=== PATIENT | male | born 2000 | race Caucasian/White ===

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

== ENCOUNTER → 2022-08-24 13:02 | Outpatient (BNVA) | payer MEDICAID, SELFPAY | PROVIDERS: Visit Provider Student in an Organized Health Care Education/Training Program | DX: S83.004D Unspecified dislocation of right patella, subsequent encounter (principal); X58.XXXD Exposure to other specified factors, subsequent encounter | CPT/HCPCS: 73562 ==

== ENCOUNTER 2022-09-13 07:26 | Outpatient (CLI) | payer MEDICAID, SELFPAY ==
--- NOTE | 2022-09-13 07:36 | MR_ITS ---
WS: [id number] MRI RIGHT KNEE HISTORY: patellar dislocation COMPARISON: Radiograph 08/24/2022 Anterior cruciate ligament: Intact. Posterior cruciate ligament: Intact. Medial collateral ligament: Moderate amount of fluid surrounding the supra articular MCL. There is al so increased T2 signal in the central ligament consistent with a mild sprain. High-grade tear proxima l MCL near the attachment with the medial patellofemoral ligament. Posterior lateral corner structures: Intact. Medial menisci: Intact. Normal signal, size and shape. Lateral meniscus: Intact. Normal signal, size and shape. Extensor mechanism: Distal quadriceps tendon and patellar tendons are intact. Fluid and soft tissue: Moderate-sized suprapatellar joint effusion. Edema and fluid extend into the k nee joint with a small amount of edema in the infrapatellar fat pad. No Jaimes's cyst. Osseous and articular structures: Patellofemoral compartment: Lateral subluxation of patella with no complete dislocation. There is a l arge amount of edema within the patella greatest along the medial component. Abnormal signal involvin g both the medial patellofemoral ligament attachment to the patella and distally at the medial condyl e. Medial compartment: Small amount of marrow edema medial femoral condyle at the site of the MCL and th e distal medial patellofemoral ligament. Otherwise the joint space is normal. Lateral compartment: Large amount of marrow edema in the lateral femoral condyle extending across the midline. Flattening of the normal concavity of the femoral condyle was also noted on the radiograph consistent with cortical and trabecular injury. There is flattening and osteochondral fracture involv ing the anterolateral femoral condyle. No significant cartilage abnormality in the joint space. The t ibial plateau is normal. MR/MR knee RT wo con* [id number] IMPRESSION: 1. Constellation of findings consistent with recent acute patellar dislocation . 2. Patella continues to be slightly laterally subluxed. 3. Marrow edema and osteochondral injury in the medial patella and lateral fem oral condyle. 4. Flattening and osteochondral injury/fracture involving the lateral femoral condyle. 5. Torn medial patellofemoral ligament. Ligament is torn at both the attachmen t to the patella and distally at the medial femoral condyle. 6. There is a small amount of marrow edema in the medial femoral condyle. This is at the site of the medial patellofemoral ligament insertion and the proxima l medial collateral ligament which is also torn. 7. Moderate joint effusion.
== END 2022-09-13 07:27 | disposition home or self-care (01) ==
PROVIDERS: Visit Provider Physician Assistant
DX: S83.004A Unspecified dislocation of right patella, initial encounter (principal); X58.XXXA Exposure to other specified factors, initial encounter; R60.0 Localized edema; M25.461 Effusion, right knee
CPT/HCPCS: 73721

== ENCOUNTER 2022-10-28 15:28 | Outpatient (CLI) | payer MEDICAID, SELFPAY | END 2022-10-28 15:29 | disposition home or self-care (01) | LOC: SPT 15:29 | PROVIDERS: Visit Provider Student in an Organized Health Care Education/Training Program | DX: Z46.89 Encounter for fitting and adjustment of other specified devices (principal); S83.004D Unspecified dislocation of right patella, subsequent encounter; X58.XXXD Exposure to other specified factors, subsequent encounter | CPT/HCPCS: L1812 ==

== ENCOUNTER → 2023-05-26 11:06 | Outpatient (BNVA) | payer MEDICAID, SELFPAY | PROVIDERS: PCP Family Medicine Adult Medicine; Visit Provider Family Medicine Adult Medicine | DX: Z78.9 Other specified health status (principal); R45.0 Nervousness; R25.1 Tremor, unspecified; Z83.3 Family history of diabetes mellitus; T63.441A Toxic effect of venom of bees, accidental (unintentional), initial encounter; Z86.19 Personal history of other infectious and parasitic diseases; S83.004A Unspecified dislocation of right patella, initial encounter | CPT/HCPCS: 80053; 83036; 84443; 85025 ==